=== PATIENT | male | born 1975 | race Caucasian/White ===

== ENCOUNTER 2022-05-08 21:36 | Emergency (ER) | payer MEDICAID ==
[~2022-05-08] VITALS: Ht 170.2 cm; Wt 115.2 kg
[2022-05-08 21:51] VITALS: BP 176/99
--- NOTE | 2022-05-08 23:37 | NUR ---
Patient taken to bed 3.
[2022-05-09] VITALS: BP 142/84
--- NOTE | 2022-05-09 | NUR ---
Patient discharged with v/s stable. Written and verbal after care instructions given and explained. Patient alert, oriented and verbalized understanding of instructions. Ambulatory with steady gait. All questions addressed prior to discharge. ID band removed. Patient advised to follow up with PMD. Rx of AMLODIPINE, LISINOPRIL given. Patient educated on indication of medication including possible reaction and side effects. Opportunity to ask questions provided and answered.
[2022-05-09] MEDS ORDERED: AMLO5TAB PO (00:29)
[2022-05-09] MEDS ORDERED: LISI40TA12 PO (00:29)
== END 2022-05-09 | disposition home or self-care (01) ==
LOC: MED 21:36
DX: I10 Essential (primary) hypertension (principal); M79.671 Pain in right foot; M79.672 Pain in left foot; Z76.0 Encounter for issue of repeat prescription; Z79.899 Other long term (current) drug therapy; Z98.890 Other specified postprocedural states
CPT/HCPCS: 99281